=== PATIENT | male | born 1970 | race Caucasian/White ===

== ENCOUNTER 2017-03-24 13:25 | Emergency (ER) | payer OTHER ==
[~2017-03-24] VITALS: Ht 182.9 cm; Wt 150.0 kg
[2017-03-24 13:27] VITALS: BP 144/95; PULSE 88; RESP 20; TEMP 97.9; O2SAT 95
[2017-03-24] MEDS ORDERED: LISI-519 PO (13:36)
[2017-03-24] MEDS ORDERED: TRAM50TA PO (13:37)
[2017-03-24] MEDS ORDERED: MOBI7.5T PO (13:37)
--- NOTE | 2017-03-24 14:16 | PD ---
HPI Chief Complaint: Pain: Acute or Chronic Time Seen by Provider: 14:15 Travel History International Travel<30 days: No Contact w/Intl Traveler<30days: No Traveled to known affect area: No History of Present Illness HPI Patient is complaining of right rib/back pain that began yesterday while at work lifting a approximately 10 pound box when he felt a tearing sensation in his right lateral rib cage. Patient denies any trauma. Pain improves with rest and worse with movement. Patient denies any fevers, nausea or vomiting, shortness of breath, chest pain, abdominal pain, loss or change in bowel or bladder, or trauma. Denies any radiation of the pain. PFSH Past Medical History GERD: Yes Hypertension: Yes Social History Tobacco Use: No Substance Use: No Allergies-Medications (Allergen,Severity, Reaction): Coded Allergies: Penicillins (Verified Allergy, Severe, 03/24/17) Reported Meds & Prescriptions Reported Meds & Active Scripts Active Flexeril (Cyclobenzaprine HCl) 10 Mg Tab 10 Mg PO Q8HR PRN Lortab (Hydrocodone-Acetaminophen) 5-325 Mg Tab 1 Tab PO Q8HR PRN Reported Mobic (Meloxicam) 7.5 Mg Tab 7.5 Mg PO DAILY Tramadol (Tramadol HCl) 50 Mg Tab 50 Mg PO BID PRN Lisinopril 5 Mg Tab 5 Mg PO DAILY Review of Systems Except as stated in HPI: all other systems reviewed are Neg Physical Exam Narrative GENERAL: Well-developed, overly nourished, in no acute distress, and non-ill appearing. SKIN: Focused skin assessment warm and dry. HEAD: Atraumatic. Normocephalic. EYES: Pupils equal and round. EOMI. No scleral icterus. No injection or drainage. ENT: No nasal bleeding or discharge. Mucous membranes pink and moist. NECK: Trachea midline. Supple. No nuclear rigidity. CARDIOVASCULAR: Regular rate and rhythm. No murmur appreciated. RESPIRATORY: No accessory muscle use. No respiratory distress. Clear to auscultation. Breath sounds equal bilaterally. Patient reports symptoms palpation over right lateral rib cage midaxillary. GASTROINTESTINAL: Abdomen soft, non-tender, nondistended, and no guarding. Hepatic and splenic margins not palpable. Normal bowel sounds 4. MUSCULOSKELETAL: No obvious deformities. No clubbing. No cyanosis. No edema. Full range of motion. NEUROLOGICAL: Awake and alert. No obvious cranial nerve deficits. Motor grossly within normal limits. Normal speech. PSYCHIATRIC: Appropriate mood and affect; insight and judgment normal. Data Data Last Documented VS Vital Signs Date Time Temp Pulse Resp B/P (MAP) Pulse Ox O2 Delivery O2 Flow Rate FiO2 03/24/17 13:27 97.9 88 20 144/95 (111) 95 Room Air MDM Medical Decision Making Medical Screen Exam Complete: Yes Emergency Medical Condition: Yes Differential Diagnosis Fracture, strain, contusion, other Narrative Course There was no history of recent fall or trauma. There was no evidence to support genitourinary etiology. There is also no evidence to suggest vascular pathology such as AAA dissection. No fevers or other evidence to suspect infectious processes, abscess, osteomyelitis etc. The patients neurological exam is normal with normal motor and sensory. There is no saddle paresthesias reported and no bowel or bladder incontinence or retention. I suspect the pain is mechanical in nature. Clinical suspicion, plan of care and management was discussed with the patient. The patient was instructed to follow up with their health care provider. The patient was also instructed to return if the pain worsened, changed, or developed weakness or bowel or bladder trouble. The patient agreed with plan. Patient in no obvious distress upon re-evaluation. Patient was asked if they wanted to speak to my attending, which the patient did not wish to do at this time. Any questions/concerns in reference to patient diagnosis/condition discussed and clarified prior to patient's discharge. Reinforced sheer importance of close follow up with patient's primary physician or primary care clinic. Instructed patient to return to ED immediately, if symptoms return/ worsen. Pt showed understanding of above instructions. Further instructions and recommendations were detailed in discharge paperwork. Pt ambulated without difficulty out of ED at discharge. Diagnosis Primary Impression: Musculoskeletal pain Patient Instructions: General Instructions, Musculoskeletal Pain (ED) Additional Instructions: Follow-up with your primary care physician next week for reevaluation. Take all medication as prescribed. Do not take tramadol while taking medication prescribed today. Return to the emergency department if symptoms get worse. Med/Other Pt SpecificInfo: Prescription(s) given Scripts Cyclobenzaprine (Flexeril) 10 Mg Tab 10 MG PO Q8HR Y for MUSCLE PAIN, #15 TAB 0 Refills Prov: Bacilio Cowart MD 03/24/17 Hydrocodone-Acetaminophen (Lortab) 5-325 Mg Tab 1 TAB PO Q8HR Y for PAIN GREATER THAN 7, #7 TAB 0 Refills Prov: Bacilio Cowart MD 03/24/17 Disposition: 01 DISCHARGE HOME Condition: Stable Sulaiman Loza Mar 24, 2017 14:16
[2017-03-24] MEDS ORDERED: HYDR-3533 PO (14:23)
[2017-03-24] MEDS ORDERED: CYCL1TAB29 PO (14:23)
== END 2017-03-24 16:01 | disposition home or self-care (01) ==
LOC: EDTENT 13:25
DX: M79.1 Myalgia (principal); I10 Essential (primary) hypertension; K21.9 Gastro-esophageal reflux disease without esophagitis
CPT/HCPCS: 99284